=== PATIENT | female | born 1970 ===

== ENCOUNTER 2024-07-03 08:43 | Emergency (ER) | payer OTHER, SELFPAY ==
[2024-07-03] VITALS (8 sets, daily range): BP systolic 122–146; BP diastolic 60–87; PULSE 69–80; RESP 14–23; TEMP 36.8; O2SAT 96–100; BMI 24.0
--- NOTE | 2024-07-03 08:52 | EKG_ITS ---
[address] [address] Test Date: 2024-07-03 Pat Name: Wolf Garcia Department: Room: Gender: Female Logistician: MAXIME : 1970 Requested By: Order Number: [id number] Reading MD: Albaro Crocker Measurements Intervals [place] Rate: 86 P: 67 SD: 150 QRS: 21 QRSD: 86 T: 46 QT: 394 QTc: 471 Interpretive Statements Normal sinus rhythm Possible Anterior infarct , age undetermined Electronically Signed On 07-03-2024 19:08:20 PDT by Albaro Crocker
--- NOTE | 2024-07-03 08:53 | DI.RAD.S_ITS ---
PROCEDURE: XR CHEST 1V INDICATIONS: chest pain TECHNIQUE: One view of the chest was acquired. COMPARISON: None. FINDINGS: Surgical changes and devices: None. Lungs and pleura: Lungs are clear. No pleural effusions or pneumothorax. Mediastinum: Mediastinal contours appear normal. Heart size is normal. Bones and chest wall: No suspicious bony lesions. Overlying soft tissues appear unremarkable. IMPRESSION: No acute cardiopulmonary abnormality is seen. Dictated by: Garry Daniels M.D. on 07/03/2024 at 10:10 Approved by: Garry Daniels M.D. on 07/03/2024 at 10:10
[2024-07-03 09:14] LABS: Add Manual Diff / Slide Review NO; Basophils Absolute Auto 0 /uL (0-100); Basophils Percent Auto 0.6 % (0-2); Eosinophils Absolute Auto 0 /uL (0-450); Eosinophils Percent Auto 0.6 % (2-4); Hematocrit 45.1 % (36-46); Hemoglobin 14.7 g/dL (12.0-16.0); Lymphocytes Absolute Auto 1200 /uL (1100-4500); Lymphocytes Percent Auto 16.1 % (25-40); Mean Corpuscular HGB Conc 32.7 % (30-36); Mean Corpuscular Hemoglobin 29.7 PG (26-34); Mean Corpuscular Volume 90.9 fL (80-100); Monocytes Absolute Auto 200 /uL (0-900); Monocytes Percent Auto 2.9 % (3-14); Neutrophils Absolute Auto 5900 /uL (1500-7000); Neutrophils Percent Auto 79.8 % (50-75); Platelet Count 414 X10^3/uL (150-400); Red Blood Cell Count 4.96 X10^6/uL (4.0-5.2); Red Cell Distribution Width 14.1 % (11.6-14.8); White Blood Cell Count 7.4 X10^3/uL (4.5-11.0)
[2024-07-03 09:28] LABS: Alanine Aminotransferase 22 IU/L (<35); Albumin Globulin Ratio 1.2 (1.0-2.8); Alkaline Phosphatase 76 U/L (38-126); Aspartate Aminotransferase 26 IU/L (14-36); BUN Creatinine Ratio 21.5 (6-22); Bilirubin Total 0.8 mg/dL (0.2-1.3); Blood Urea Nitrogen 14 mg/dL (7-17); Calcium 10.2 mg/dL (8.4-10.2); Carbon Dioxide 28 mmol/L (22-32); Chloride 104 mmol/L (98-107); Creatine Kinase 78 U/L (30-135); Estimated Glomerular Filt Rate > 60 mL/min (>60); Globulin 4.2 g/dL (1.7-4.1); Glucose 124 mg/dL (70-99); HEMOLYSIS < 15 (0-50); Lipase 159 U/L (23-300); Sodium 143 mmol/L (137-145); Total Protein 9.2 g/dL (6.3-8.2)
--- NOTE | 2024-07-03 09:37 | PC.NURSE ---
Pt sitting on stretcher, A&Ox4, RA, breathing even/equal/unlabored at this time. Pt states their voice is more horse then normal and is c/o pain on inhalation 07/21. Pt also states that the water that she drank and went down the wrong way was a herbal tea that was steeped with mint and spices. Pt states that she had some improvement last night, but this morning states that it feels like I just can't clear it when I cough, like somethings still there.. Pt speaking in full sentences and is currently able to manage own secretions. Pt c/o sore throat at this time. Call light within reach, warm blankets provided, no other needs at this time
[2024-07-03 09:39] LABS: Troponin I < 0.012 ng/mL (0.01-0.034)
--- NOTE | 2024-07-03 09:47 | ED_ITS ---
HPI - Chest Pain General Chief Complaint: Chest Pain Stated Complaint: chest pain, SOB feels like water is in lungs Time Seen by Provider: 07/03/24 08:53 Source: patient Mode of arrival: Ambulatory Limitations: no limitations History of Present Illness HPI narrative: 54-year-old female has history of diabetes, no history of known coronary artery disease, history of prior reflux, not currently on antacid regular therapies, had choking episode last night while drinking water, now has hoarseness and sore throat, and right anterior chest discomfort. No pain or swelling to legs. No history of blood clot to legs or lungs. No fevers or chills. No recent coughing besides the choking event. Related Data Previous Rx's Medication Instructions Recorded omeprazole 20 mg capsule,delayed 20 mg PO DAILY upper abdominal 07/03/24 release pain 30 days #30 caps Allergies Allergy/AdvReac Type Severity Reaction Status Date / Time oxycodone Allergy ITCHING Verified 07/03/24 09:00 Patient History Social History Smoking Status: Never smoker Smoking Status: Never smoker Exam Narrative Exam Narrative: GENERAL: Well-developed patient, in mild distress. HEAD: Atraumatic. Normocephalic. EYES: Pupils equal round and reactive. Extraocular motions intact. No scleral icterus. No injection or drainage. ENT: Nose without bleeding, purulent drainage. Throat without erythema, tonsillar hypertrophy or exudate. Airway patent. NECK: Trachea midline. Non tender CARDIOVASCULAR: Regular rate and rhythm without murmurs, gallops, or rubs. RESPIRATORY: Clear to auscultation. Breath sounds equal bilaterally. No wheezes, rales, or rhonchi. Speaks in full sentences, no respiratory distress GASTROINTESTINAL: Abdomen soft, non-tender, nondistended. EXTREMITIES: No edema or joint tenderness. BACK: Nontender without deformity or crepitance. No flank tenderness. NEURO: AOx3. Motor functions grossly nonfocal. SKIN: No rash or erythema of visible areas Initial Vital Signs Initial Vital Signs: Vital Signs Temperature 98.2 F 07/03/24 08:57 Pulse Rate 79 07/03/24 08:57 Respiratory Rate 18 07/03/24 08:57 Blood Pressure 146/87 H 07/03/24 08:57 Pulse Oximetry 100 07/03/24 08:57 Oxygen Delivery Method Room Air 07/03/24 08:57 Course Orders Ordered: Discontinued Medications Al Hydrox/Mg Hydrox/Simethicone (Mag Hydrox/Alum/Simeth 30 Ml Udc) 30 ml PO NOW ONE Stop: 07/03/24 10:22 Last Admin: 07/03/24 10:56 Dose: 30 ml Documented By: MORRIS Aspirin (Aspirin 81 Mg Chew Tab) 324 mg PO NOW ONE Stop: 07/03/24 08:54 Last Admin: 07/03/24 10:06 Dose: Not Given Documented By: MORRIS Famotidine (Famotidine 20 Mg/2 Ml Vial) 20 mg IV NOW MIK Last Admin: 07/03/24 10:56 Dose: 20 mg Documented By: MORRIS Vital Signs Vital signs: Vital Signs - 8 hr 07/03/24 08:57 07/03/24 09:02 07/03/24 09:30 Temperature 98.2 F Pulse Rate 79 76 74 Respiratory Rate 18 20 23 Blood Pressure 146/87 H Pulse Oximetry 100 100 100 Oxygen Delivery Method Room Air 07/03/24 09:30 07/03/24 10:00 07/03/24 10:00 Temperature 98.2 F Pulse Rate 80 74 Respiratory Rate 21 19 Blood Pressure 136/80 122/60 Pulse Oximetry 100 97 Oxygen Delivery Method 07/03/24 10:30 07/03/24 10:30 Temperature Pulse Rate 74 Respiratory Rate 16 Blood Pressure 126/82 Pulse Oximetry 98 Oxygen Delivery Method MDM - Chest Pain Lab Data Attestation: I reviewed the patient's lab results. Lab results narrative: White blood cell count 7400, hemoglobin 14.7, platelets adequate. Glucose 124. Renal function normal. Electrolytes unremarkable. Serum CO2 normal. Liver functions and lipase normal. Troponin negative/unmeasurable. 07/03/24 09:00 07/03/24 09:00 Labs: Lab Results 07/03/24 07/03/24 Range/Units 09:00 11:05 WBC 7.4 (4.5-11.0) X10^3/uL RBC 4.96 (4.0-5.2) X10^6/uL Hgb 14.7 (12.0-16.0) g/dL Hct 45.1 (36-46) % MCV 90.9 (80-100) fL MCH 29.7 (26-34) PG MCHC 32.7 (30-36) % RDW 14.1 (11.6-14.8) % Plt Count 414 H (150-400) X10^3/uL Neut % (Auto) 79.8 H (50-75) % Lymph % (Auto) 16.1 L (25-40) % [place] % (Auto) 2.9 L (3-14) % Eos % (Auto) 0.6 L (2-4) % Baso % (Auto) 0.6 (0-2) % Neut # (Auto) 5900 (5174-7724) /uL Lymph # (Auto) 1200 (0263-0854) /uL [place] # (Auto) 200 (0-900) /uL Eos # (Auto) 0 (0-450) /uL Baso # (Auto) 0 (0-100) /uL Sodium 143 (137-145) mmol/L Potassium 4.0 (3.4-5.1) mmol/L Chloride 104 (98-107) mmol/L Carbon Dioxide 28 (22-32) mmol/L BUN 14 (7-17) mg/dL Creatinine 0.65 (0.52-1.04) mg/dL Estimated GFR > 60 (>60) mL/min BUN/Creatinine Ratio 21.5 (6-22) Glucose 124 H (70-99) mg/dL Calcium 10.2 (8.4-10.2) mg/dL Total Bilirubin 0.8 (0.2-1.3) mg/dL AST 26 (14-36) IU/L ALT 22 (<35) IU/L Alkaline Phosphatase 76 (38-126) U/L Total Creatine Kinase 78 (30-135) U/L Troponin I < 0.012 < 0.012 (0.01-0.034) ng/mL Total Protein 9.2 H (6.3-8.2) g/dL Albumin 5.0 (3.5-5.0) g/dL Globulin 4.2 H (1.7-4.1) g/dL Albumin/Globulin Ratio 1.2 (1.0-2.8) Lipase 159 (23-300) U/L Imaging Data Chest x-ray: Radiologist's Impression: Close Chest X-Ray (Signed) Garry Daniels - 07/03/[address] [address] XRay Report Signed Patient: Wolf Garcia MR#: [id number] : 1970 Acct:[id number] Age/Sex: 54 / F Date of Service: 07/03/24 Loc: ED Accession Number: [id number] Procedure: XR chest 1V Ordering Provider: Luis F Dumont MD PROCEDURE: XR CHEST 1V INDICATIONS: chest pain TECHNIQUE: One view of the chest was acquired. COMPARISON: None. FINDINGS: Surgical changes and devices: None. Lungs and pleura: Lungs are clear. No pleural effusions or pneumothorax. Mediastinum: Mediastinal contours appear normal. Heart size is normal. Bones and chest wall: No suspicious bony lesions. Overlying soft tissues appear unremarkable. IMPRESSION: No acute cardiopulmonary abnormality is seen. Dictated by: Garry Daniels M.D. on 07/03/2024 at 10:10 Approved by: Garry Daniels M.D. on 07/03/2024 at 10:10 ECG Data Attestation: I personally reviewed and interpreted this ECG as follows: Interpretation: Normal sinus rhythm with rate of 86, no obvious ST segment elevation changes. MI 150, QRS 86, QTC 471. 1055, normal sinus rhythm with no obvious ST segment elevation or depression changes, rate 71. MI 166, QRS 86, QTC 452. MDM Narrative Medical decision making narrative: 54-year-old female with history of CARLOS A, history of diabetes, no known CAD, had choking episode last night of drinking water, which is unusual for her, no subsequent problems swallowing, subsequent sore throat, and right anterior chest discomfort since early this morning. No injury or trauma or other new activities. Afebrile, sirs screen negative. No tenderness on examination. Screening EKG without ischemic changes. Chest x-ray no acute changes. Initial troponin negative. Seems unlikely by history and hoarseness to be ACS or PE. Suspected CARLOS A. Trial of antacid therapy. IV Pepcid, oral Maalox. Repeat troponin and EKG scheduled 2 hours Repeat EKG also normal, no ischemic changes. Interval troponin also negative. Home trial omeprazole. Further evaluation as outpatient for now. DC home, follow-up with PCP next week. Return precautions discussed. Discharge Plan Departure Patient Disposition: Home Clinical Impression: Chest pain, Hx of gastroesophageal reflux (GERD) Instructions: DI for Gastroesophageal Reflux Disease (GERD), DI for Atypical Chest Pain Activity Restrictions/Additional Instructions: History of gastroesophageal reflux, no known coronary artery disease, choking episode last night while drinking water, hoarseness of the voice, right anterior chest discomfort. EKGs and serial blood tests not suggestive of heart attack at this time. Chest x-ray unremarkable. Symptoms are suspicious for acid related symptoms. Consider GE reflux. Trial of antacids. Oral Maalox and IV Pepcid given in the emergency department. Consider use of omeprazole for the next couple of weeks. Recheck symptoms with your regular doctor, further workup as an outpatient. Return earlier to this/nearest emergency department for any change worsening symptoms or any concerns prior. Prescriptions: New omeprazole 20 mg capsule,delayed release(DR/EC) 20 mg PO DAILY 30 Days Qty: 30 0RF Stand Alone Forms: Patient Portal/API/Survey
[2024-07-03] MEDS: MAG HYDROX/ALUM/SIMETH 30 ML UDC PO (10:56)
[2024-07-03] MEDS: FAMOTIDINE 20 MG/2 ML VIAL IV (10:56)
--- NOTE | 2024-07-03 11:00 | EKG_ITS ---
[address] [address] Test Date: 2024-07-03 Pat Name: Wolf Garcia Department: Room: Gender: Female Processing Engineer: MAXIME : 1970 Requested By: Order Number: [id number] Reading MD: Albaro Crocker Measurements Intervals [place] Rate: 71 P: 57 NC: 166 QRS: 6 QRSD: 86 T: 50 QT: 416 QTc: 452 Interpretive Statements Normal sinus rhythm Electronically Signed On 07-03-2024 19:08:25 PDT by Albaro Crocker
--- NOTE | 2024-07-03 11:30 | PC.NURSE ---
Pt endorses improvment of pain with inhaltion 2/10 pain at this time. Pt sitting on stetcher, RA, NAD, A&Ox4, breathing even/equal/unlabored at this time. Call light within reach, no other needs at this time.
[2024-07-03 11:43] LABS: Troponin I < 0.012 ng/mL (0.01-0.034)
== END 2024-07-03 12:05 | disposition home or self-care (01) ==
PROVIDERS: Emergency Provider Emergency Medicine
DX: R07.9 Chest pain, unspecified (principal); T17.998A Other foreign object in respiratory tract, part unspecified causing other injury, initial encounter; Z87.19 Personal history of other diseases of the digestive system; W44.F0XA Objects of natural or organic material unspecified, entering into or through a natural orifice, initial encounter
CPT/HCPCS: 36415; 71045; 80053; 82550; 83690; 84484; 85025; 93005; 96374; 99284